=== PATIENT | female | born 1975 | race Caucasian/White ===

== ENCOUNTER 2022-04-14 07:56 | Outpatient (CLI) | payer OTHER, SELFPAY ==
[2022-04-14 13:54] LABS: Albumin* 4.3 g/dL (3.3-5.0); Chloride* 105 mmol/L (96-114)
[2022-04-14 13:55] LABS: Potassium* 4.2 mmol/L (3.6-5.1); Sodium* 140 mmol/L (135-149)
[2022-04-14 13:57] LABS: Aspartate Amino Transferase* 37 U/L (12-35); Bilirubin Total* 0.6 mg/dL (0.1-1.5); Blood Urea Nitrogen* 11 mg/dL (5-24); Carbon Dioxide* 30 mmol/L (20-32); Cholesterol* 265 mg/dL (90-199); Creatinine* 0.7 mg/dL (0.5-1.5); Estimated Glomerular Filt Rate 107 ml/min; Glucose* 91 mg/dL (60-115); Total Protein* 7.5 g/dL (6.0-8.3)
[2022-04-14 13:58] LABS: Alanine Aminotransferase* 44 U/L (4-35); Alkaline Phosphatase* 57 U/L (40-150); Calcium* 9.4 mg/dL (8.4-10.6); HDL Cholesterol* 46 mg/dL (>=50); LDL Cholesterol Calculated 150 mg/dL (<100); Triglycerides* 347 mg/dL (40-149)
== END 2022-04-14 07:57 | disposition home or self-care (01) ==
PROVIDERS: PCP Physician Assistant Medical; Visit Provider Physician Assistant Medical
DX: Z00.00 Encounter for general adult medical examination without abnormal findings (principal); E78.5 Hyperlipidemia, unspecified; E03.9 Hypothyroidism, unspecified
CPT/HCPCS: 80053; 80061; 84443

== ENCOUNTER 2022-07-24 07:53 | Outpatient (CLI) | payer OTHER, SELFPAY | END 2022-07-24 07:54 | disposition home or self-care (01) | LOC: NFLDREF 07-26 18:08 | PROVIDERS: PCP Physician Assistant Medical; Referring Provider Physician Assistant Medical; Visit Provider Physician Assistant Medical | DX: E03.9 Hypothyroidism, unspecified (principal); E78.1 Pure hyperglyceridemia; E78.5 Hyperlipidemia, unspecified | CPT/HCPCS: 80061; 84439; 84443; 84450; 84460 ==

== ENCOUNTER 2022-10-28 07:48 | Outpatient (CLI) | payer OTHER, SELFPAY | END 2022-10-28 07:49 | disposition home or self-care (01) | LOC: NFLDREF 11-06 11:34 | PROVIDERS: PCP Physician Assistant Medical; Referring Provider Physician Assistant Medical; Visit Provider Physician Assistant Medical | DX: E03.9 Hypothyroidism, unspecified (principal) | CPT/HCPCS: 84443 ==

== ENCOUNTER 2023-05-11 11:32 | Outpatient (CLI) | payer OTHER, SELFPAY | END 2023-05-11 11:33 | disposition home or self-care (01) | LOC: NFLDREF 05-12 05:44 | PROVIDERS: PCP Physician Assistant Medical; Referring Provider Physician Assistant Medical; Visit Provider Physician Assistant Medical | DX: E66.9 Obesity, unspecified (principal); I10 Essential (primary) hypertension; R79.89 Other specified abnormal findings of blood chemistry; E03.9 Hypothyroidism, unspecified; E78.1 Pure hyperglyceridemia; E78.2 Mixed hyperlipidemia; F32.81 Premenstrual dysphoric disorder | CPT/HCPCS: 80053; 80061; 82306; 84443 ==

== ENCOUNTER 2024-09-22 08:30 | Outpatient (CLI) | payer OTHER, SELFPAY | END 2024-09-22 08:31 | disposition home or self-care (01) | LOC: NFLDREF 09-27 13:14 | PROVIDERS: PCP Family Medicine; Referring Provider Physician Assistant Medical; Visit Provider Family Medicine | DX: E03.9 Hypothyroidism, unspecified (principal); I10 Essential (primary) hypertension; F32.81 Premenstrual dysphoric disorder; R06.83 Snoring; E78.1 Pure hyperglyceridemia; E78.5 Hyperlipidemia, unspecified; E66.9 Obesity, unspecified; Z13.1 Encounter for screening for diabetes mellitus; Z13.6 Encounter for screening for cardiovascular disorders | CPT/HCPCS: 80053; 80061; 84439; 84443 ==

== ENCOUNTER 2025-01-30 08:55 | Outpatient (CLI) | payer OTHER, SELFPAY | END 2025-01-30 08:56 | disposition home or self-care (01) | PROVIDERS: PCP Family Medicine; Visit Provider Physician Assistant Medical | DX: E03.9 Hypothyroidism, unspecified (principal); R79.89 Other specified abnormal findings of blood chemistry | CPT/HCPCS: 82306; 84439; 84443 ==